=== PATIENT | male | born 1990 | race African-American/Black ===

== ENCOUNTER 2017-03-06 18:20 | Emergency (ER) | payer SELFPAY ==
[~2017-03-06] VITALS: Ht 167.6 cm; Wt 65.8 kg
== END 2017-03-06 19:27 | disposition home or self-care (01) ==
LOC: ER 18:20
DX: M79.645 Pain in left finger(s) (principal); F17.210 Nicotine dependence, cigarettes, uncomplicated
CPT/HCPCS: 99282

== ENCOUNTER → 2018-03-20 | Outpatient (CLI) | payer OTHER ==
[2018-03-21 23:12] LABS: HBSAG SCREEN Negative (Negative); HEP B CORE AB, TOT Negative (Negative); HEP C VIRUS AB <0.1 (0.0-0.9); HIV SCREEN 4TH GENERATION WRFX Non Reactive (Non Reactive)
[2018-03-23 02:08] LABS: CHLAMYDIA TRACHOMATIS, NAA Negative (Negative); NEISSERIA GONORRHOEAE, NAA Positive (Negative)
== END | disposition home or self-care (01) ==
LOC: LAB SHORT 18:08 → LAB 18:08
PROVIDERS: Physician Assistant
DX: N34.1 Nonspecific urethritis (principal)
CPT/HCPCS: 86592; 86704; 86708; 86803; 87340; 87389; 87491; 87591

== ENCOUNTER 2018-04-14 17:21 | Emergency (ER) | payer OTHER ==
[~2018-04-14] VITALS: Ht 170.2 cm; Wt 70.3 kg
== END 2018-04-14 18:28 | disposition home or self-care (01) ==
LOC: ER 17:21
DX: S43.51XA Sprain of right acromioclavicular joint, initial encounter (principal); W22.8XXA Striking against or struck by other objects, initial encounter; F17.210 Nicotine dependence, cigarettes, uncomplicated
CPT/HCPCS: 73030; 99283-25

== ENCOUNTER 2019-01-25 02:09 | Emergency (ER) | payer SELFPAY ==
[~2019-01-25] VITALS: Ht 172.7 cm; Wt 70.3 kg
[2019-01-25] MEDS ORDERED: CEPH500 PO (03:36)
[2019-01-25] MEDS ORDERED: Bactrim Ds Tab1 EACH PO (03:36)
[2019-01-25] MEDS ORDERED: Mupirocin22 GM TOP (03:36)
== END 2019-01-25 04:01 | disposition home or self-care (01) ==
LOC: ER 02:09
DX: L73.9 Follicular disorder, unspecified (principal); F17.210 Nicotine dependence, cigarettes, uncomplicated
CPT/HCPCS: 99282; A9270-GY

== ENCOUNTER 2019-02-14 01:09 | Emergency (ER) | payer SELFPAY ==
[~2019-02-14] VITALS: Ht 172.7 cm; Wt 68.0 kg
[~2019-02-14 01:09] MED LIST: Bactrim Ds Tab1 EACH PO; CEPH500 PO; Mupirocin22 GM TOP
[2019-02-14 01:27] LABS: BASOPHILS ABSOLUTE AUTO 0.05 K/mm3 (0.00-0.23); BASOPHILS PERCENT AUTO 1 % (0-2); EOSINOPHILS ABSOLUTE AUTO 0.27 K/mm3 (0.00-0.68); EOSINOPHILS PERCENT AUTO 4 % (0-6); Hematocrit 46.6 % (37.0-53.0); Hemoglobin 14.9 g/dL (13.5-17.5); IMMATURE GRAN ABSOLUTE AUTO 0.01 K/mm3 (0.00-0.10); IMMATURE GRAN PERCENT AUTO 0 % (0-1); LYMPHOCYTES ABSOLUTE AUTO 2.94 K/mm3 (0.84-5.20); LYMPHOCYTES PERCENT AUTO 44 % (21-46); MONOCYTES ABSOLUTE AUTO 0.49 K/mm3 (0.16-1.47); MONOCYTES PERCENT AUTO 7 % (4-13); Mean Corpuscular HGB 26.8 pg (26.0-34.0); Mean Corpuscular Volume 84 fL (80-100); Mean Platelet Volume 8.6 fL (9.1-12.4); NEUTROPHILS ABSOLUTE AUTO 2.93 K/mm3 (1.96-9.15); NEUTROPHILS PERCENT AUTO 44 % (41-73); Platelet Count 358 K/mm3 (150-400); RDW Coefficient Variation 12.8 % (11.7-14.2); RDW Standard Deviation 39.6 fL (35.1-46.3); Red Blood Cell Count 5.56 M/mm3 (4.30-5.90); White Blood Cell Count 6.69 K/mm3 (4.00-11.30)
[2019-02-14 01:40] LABS: International Normalized Ratio 0.9; Prothrombin Time Results 9.7 Sec (9.7-11.5)
[2019-02-14 01:48] LABS: Alanine Aminotransfer (ALT/SGP 20 U/L (12-78); Albumin, Blood 3.9 g/dL (3.4-5.0); Albumin/Globulin Ratio 1.1 (0.8-1.8); Alk Phos 94 U/L (50-136); Anion Gap 9 mmol/L (6-16); Aspartate Aminotrans (AST/SGOT 15 U/L (12-37); Beta HCG, Quantitative, Serum <1 mIU/mL (0-1); Bilirubin, Total 0.2 mg/dL (0.1-1.0); Blood Urea Nitrogen 9 mg/dL (8-24); Bun/Creatinine Ratio 7.6 (12.0-20.0); CO2, Blood 24 mmol/L (21-32); Calcium, Blood 8.5 mg/dL (8.5-10.1); Chloride, Blood 108 mmol/L (98-108); Creatinine, Blood 1.19 mg/dL (0.60-1.20); Ethanol (Alcohol), Blood, Med <3 mg/dL; Globulin, Blood 3.6 g/dL (2.2-4.0); Glomerular Filtration Rate >60 (60-); Glucose, Blood 92 mg/dL (70-99); Potassium, Blood 3.4 mmol/L (3.5-5.5); Sodium, Blood 141 mmol/L (136-145); Total Protein, Blood 7.5 g/dL (6.4-8.2)
== END 2019-02-14 04:08 | disposition home or self-care (01) ==
LOC: ER 01:09
PROVIDERS: Emergency Medicine
DX: S31.109A Unspecified open wound of abdominal wall, unspecified quadrant without penetration into peritoneal cavity, initial encounter (principal); S21.202A Unspecified open wound of left back wall of thorax without penetration into thoracic cavity, initial encounter; F17.210 Nicotine dependence, cigarettes, uncomplicated; X58.XXXA Exposure to other specified factors, initial encounter
CPT/HCPCS: 12001; 36415; 71045; 71260; 74177; 80053; 83690; 84702; 85025; 85610; 90471; 90714; 96361-59; 96365-59; 96375-59; 99285-25; G0480; J0690; J1170; J2405; J7030; Q9967

== ENCOUNTER 2019-02-24 15:33 | Emergency (ER) | payer SELFPAY ==
[~2019-02-24] VITALS: Ht 170.2 cm; Wt 68.0 kg
== END 2019-02-24 15:44 | disposition home or self-care (01) ==
LOC: ER 15:33
DX: S21.112D Laceration without foreign body of left front wall of thorax without penetration into thoracic cavity, subsequent encounter (principal); F17.210 Nicotine dependence, cigarettes, uncomplicated

== ENCOUNTER 2020-01-30 15:42 | Emergency (ER) | payer SELFPAY ==
[~2020-01-30] VITALS: Ht 170.2 cm; Wt 70.3 kg
== END 2020-01-30 17:16 | disposition home or self-care (01) ==
LOC: ER 15:42
DX: S41.132A Puncture wound without foreign body of left upper arm, initial encounter (principal); F17.210 Nicotine dependence, cigarettes, uncomplicated; W11.XXXA Fall on and from ladder, initial encounter
CPT/HCPCS: 73060; 99283-25

== ENCOUNTER 2020-05-18 03:30 | Emergency (ER) | payer SELFPAY ==
[~2020-05-18] VITALS: Ht 167.6 cm; Wt 74.8 kg
[2020-05-18] MEDS ORDERED: AMOCLA875 PO (04:10)
== END 2020-05-18 04:32 | disposition home or self-care (01) ==
LOC: ER 03:30
DX: K08.89 Other specified disorders of teeth and supporting structures (principal); F17.210 Nicotine dependence, cigarettes, uncomplicated
CPT/HCPCS: 99282; A9270

== ENCOUNTER → 2020-06-30 | Outpatient (CLI) | payer OTHER ==
[~2020-06-30] MED LIST changes: +AMOCLA875 PO
[2020-07-02 13:08] LABS: CHLAMYDIA BY NAA Negative (Negative); GONOCOCCUS BY NAA Negative (Negative); TRICH VAG BY NAA Positive (Negative)
== END ==
LOC: LAB EV 17:11 → LAB SHORT 17:11
PROVIDERS: Chiropractor
DX: Z20.2 Contact with and (suspected) exposure to infections with a predominantly sexual mode of transmission (principal)
CPT/HCPCS: 87491; 87591; 87661

== ENCOUNTER 2021-04-19 22:17 | Emergency (ER) | payer OTHER ==
[~2021-04-19] VITALS: Ht 170.2 cm; Wt 72.6 kg
[2021-04-20] MEDS ORDERED: AMOCLA875 PO (00:30)
== END 2021-04-20 00:42 | disposition home or self-care (01) ==
LOC: ER 22:17
DX: J32.9 Chronic sinusitis, unspecified (principal); B96.89 Other specified bacterial agents as the cause of diseases classified elsewhere; F17.210 Nicotine dependence, cigarettes, uncomplicated
CPT/HCPCS: 96372; 99283; A9270; J1885

== ENCOUNTER → 2022-04-19 | Outpatient (CLI) | payer OTHER ==
[2022-04-25 20:10] LABS: HSV-1 DNA Negative (Negative); HSV-2 DNA Negative (Negative)
== END | disposition home or self-care (01) ==
LOC: LAB SHORT 18:51 → LAB 18:51
PROVIDERS: Emergency Medicine
DX: Z72.51 High risk heterosexual behavior (principal)
CPT/HCPCS: 87529

== ENCOUNTER → 2022-04-21 | Outpatient (CLI) | payer OTHER ==
[2022-04-23 20:10] LABS: CHLAMYDIA BY NAA Negative (Negative); GONOCOCCUS BY NAA Negative (Negative); TRICH VAG BY NAA Negative (Negative)
== END | disposition home or self-care (01) ==
LOC: LAB SHORT 09:30 → LAB 09:30
PROVIDERS: Emergency Medicine
DX: Z72.51 High risk heterosexual behavior (principal)
CPT/HCPCS: 87491; 87591; 87661

== ENCOUNTER 2022-05-15 20:55 | Emergency (ER) | payer OTHER ==
[~2022-05-15] VITALS: Ht 170.2 cm; Wt 72.6 kg
[2022-05-15] MEDS ORDERED: AMOCLA875 PO (22:38)
== END 2022-05-15 22:50 | disposition home or self-care (01) ==
LOC: ER 20:55
DX: K08.89 Other specified disorders of teeth and supporting structures (principal); F17.210 Nicotine dependence, cigarettes, uncomplicated
CPT/HCPCS: 96372; 99282-25; A9270; J1885

== ENCOUNTER → 2022-07-10 | Outpatient (CLI) | payer OTHER ==
[2022-07-10 12:58] LABS: Free Thyroxine 0.95 ng/dL (0.70-1.60); Thyroid Stimulating Hormone 0.851 uIU/mL (0.360-4.800)
== END | disposition home or self-care (01) ==
LOC: LAB 12:35 → LAB SHORT 12:35
PROVIDERS: Physician Assistant Surgical
DX: R42 Dizziness and giddiness (principal)
CPT/HCPCS: 84439; 84443; 84481

== ENCOUNTER 2023-06-11 16:37 | Emergency (ER) | payer OTHER ==
[~2023-06-11] VITALS: Ht 170.2 cm; Wt 74.8 kg
[2023-06-11 16:53] VITALS: BP 132/94
[2023-06-11] MEDS ORDERED: IBUP800 PO (19:05)
== END 2023-06-11 19:07 | disposition home or self-care (01) ==
LOC: ER 16:37
DX: S61.313A Laceration without foreign body of left middle finger with damage to nail, initial encounter (principal); W22.01XA Walked into wall, initial encounter; F17.210 Nicotine dependence, cigarettes, uncomplicated
CPT/HCPCS: 12001; 73130; 99283-25